=== PATIENT | male | born 2000 | race Hispanic/Latino ===

== ENCOUNTER 2023-12-02 14:37 | Inpatient (IN) | payer SELFPAY, OTHER ==
[~2023-12-02 14:37] MED LIST: Iopamidol-370 76% 500 ML MDV (1 ML CHARGE) ONE
[2023-12-02] MEDS ORDERED: CEFAZOLIN 2 GM VIAL ONE (14:41)
[2023-12-02] MEDS ORDERED: fentaNYL 50 mcg/mL 1 mL Vial ONE ×2 (14:41→14:52)
[2023-12-02] MEDS ORDERED: Sodium Chloride 0.9% 100 ML ONE (14:41)
[2023-12-02] MEDS ORDERED: Boostrix 0.5 ML (Tdap) VIAL (>/=7 yrs of age) ONE (14:41)
[2023-12-02 14:55] LABS: #Basophils 0.04 10x3/uL (0.0-0.2); %Basophils 0.4 % (0.0-1.0); %Eosinophils 0.7 % (0.0-10.0); %Lymphocytes 33.8 % (21.0-51.0); %Monocytes 6.8 % (0.0-10.0); %Neutrophils 57.2 % (42.0-75.0); Hematocrit 35.5 % (42.0-52.0); Hemoglobin 11.8 g/dL (14.0-18.0); Mean Corpuscular HGB CONC 33.2 g/dL (32.0-36.0); Mean Corpuscular Hemoglobin 31.1 pg (27.0-31.0); Mean Corpuscular Volume 93.4 fL (78.0-98.0); Mean Platelet Volume 9.4 fL (7.4-10.4); Platelet Count 255 10x3/uL (130-400); RBC Distribution Width 13.1 % (11.5-14.5)
[2023-12-02 15:11] LABS: ALT (SGPT) 64 U/L (8-55); AST (SGOT) 78 U/L (5-34); Albumin 3.8 g/dL (3.5-5.0); Alkaline Phosphatase 48 U/L (40-110); Anion Gap 15 mmol/L (10-20); BUN (Urea Nitrogen) 12 mg/dL (8.9-20.6); Bilirubin, Total 0.4 mg/dL (0.2-1.2); Calc. Creatinine Clearance 0 mL/min (70-130); Calcium 8.4 mg/dL (7.8-10.44); Carbon Dioxide 19 mmol/L (22-29); Chloride 111 mmol/L (98-107); Estimated GFR 125; Globulin 2.9 g/dL (2.4-3.5); Glucose 141 mg/dL (70-105); Potassium 3.2 mmol/L (3.5-5.1); Protein, Total 6.7 g/dL (6.0-8.3); Sodium 142 mmol/L (136-145)
[2023-12-02] MEDS ORDERED: Lidocaine 1% PF 5 ML VIAL ONE ×2 (15:19→17:15)
[2023-12-02] MEDS ORDERED: Morphine 4 MG/ML VIAL ONE (15:24)
[2023-12-02] MEDS ORDERED: HYDROmorphone 0.5 MG/0.5 ML SYRINGE ONE ×2 (15:50→20:31)
[2023-12-02] MEDS ORDERED: Promethazine HCl 25 MG/ML VIAL IM PRN (16:08)
[2023-12-02] MEDS ORDERED: Dextrose 5% in Water 1,000 ML IV PRN (16:08)
[2023-12-02] MEDS ORDERED: Acetaminophen 325 MG TAB PO PRN (16:08)
[2023-12-02] MEDS ORDERED: Dextrose 50% Abboject 50 ML SYRINGE SLOW IVP PRN (16:08)
[2023-12-02] MEDS ORDERED: traMADol HCl 50 MG TAB PO PRN (16:08)
[2023-12-02] MEDS ORDERED: Glucagon 1 MG/ML KIT IM PRN (16:08)
[2023-12-02] MEDS ORDERED: Ondansetron PF 4 MG/2 ML Vial IVP PRN (16:08)
[2023-12-02] MEDS ORDERED: Ketamine In 0.9 % NaCl 50 MG/5 ML SYRINGE ONE (16:14)
[2023-12-02] MEDS ORDERED: Sodium Chloride 0.9% 1,000 ML IV SCH (16:15)
[2023-12-02] MEDS ORDERED: fentaNYL PF 100 MCG/2 ML SYRINGE ONE (17:15)
[2023-12-02] MEDS ORDERED: SUCCINYLCHOLINE/SOD CL,ISO/PF 200 MG/10 ML SYRINGE FS ONE (17:15)
[2023-12-02] MEDS ORDERED: PROPOFOL 20 ML ONE (17:15)
[2023-12-02] MEDS ORDERED: Rocuronium Bromide 10 MG/ML (10ML VIAL) ONE (17:15)
[2023-12-02] MEDS ORDERED: Vancomycin 1 GM VIAL ONE (18:13)
[2023-12-02] MEDS ORDERED: Ondansetron PF 4 MG/2 ML Vial ONE (18:55)
[2023-12-02] MEDS ORDERED: Dexamethasone 20 MG/5 ML VIAL ONE (18:55)
[2023-12-02] MEDS ORDERED: Sterile Water 20 ML ONE (18:57)
[2023-12-02] MEDS ORDERED: CEFAZOLIN 1 GM VIAL ONE (18:57)
[2023-12-02] MEDS ORDERED: SUGAMMADEX SODIUM 200 MG/2 ML VIAL ONE (19:38)
[2023-12-02] MEDS ORDERED: Meperidine HCl/PF 25 MG (1 mL) VIAL ONE (20:16)
[2023-12-02 21:44] LABS: Lactic Acid 4.68 mmol/L (0.5-2.2)
[2023-12-02] MEDS: Morphine 4 MG/ML VIAL SLOW IVP PRN (21:49)
[2023-12-02] MEDS: Famotidine 20 MG TAB PO SCH (21:50)
[2023-12-02] MEDS: Gentamicin 340 MG, Admixture Fee 1 EACH in Sodium Chloride 0.9% 100 ML IVPB SCH (22:04)
[2023-12-02] MEDS: TETANUS, DIPHTHERIA TOX,ADULT (TDVAX) 0.5 ML VIAL IM ONE (22:04)
[2023-12-02 22:06] VITALS: BMI 24.7
[2023-12-02] MEDS: Lactated Ringer's 1,000 ML IV SCH (22:32)
[2023-12-02] MEDS ORDERED: CEFAZOLIN 2 GM in Sodium Chloride 0.9% 100 ML IVPB SCH (23:59)
[2023-12-03] MEDS: Acetaminophen 325 MG TAB PO SCH (00:28)
[2023-12-03] MEDS: CEFAZOLIN 2 GM in Sodium Chloride 0.9% 100 ML IVPB SCH ×2 (00:28→09:03)
[2023-12-03] MEDS: traMADol HCl 50 MG TAB PO PRN (00:30)
[2023-12-03] MEDS: traMADol HCl 50 MG TAB PO SCH (00:30)
[2023-12-03 04:56] LABS: #Basophils Less than 0.03 10x3/uL (0.0-0.2); #Eosinophils Less than 0.03 10x3/uL (0.0-0.7); %Basophils 0.1 % (0.0-1.0); %Lymphocytes 8.3 % (21.0-51.0); %Monocytes 11.2 % (0.0-10.0); %Neutrophils 80.2 % (42.0-75.0); Hematocrit 24.2 % (42.0-52.0); Hemoglobin 8.3 g/dL (14.0-18.0); Mean Corpuscular HGB CONC 34.3 g/dL (32.0-36.0); Mean Corpuscular Hemoglobin 31.7 pg (27.0-31.0); Mean Corpuscular Volume 92.4 fL (78.0-98.0); Mean Platelet Volume 9.6 fL (7.4-10.4); Platelet Count 158 10x3/uL (130-400); RBC Distribution Width 13.4 % (11.5-14.5); Red Blood Cell (RBC) Count 2.62 mill/uL (4.70-6.10)
[2023-12-03 05:12] LABS: Anion Gap 15 mmol/L (10-20); BUN (Urea Nitrogen) 12 mg/dL (8.9-20.6); Calc. Creatinine Clearance 129 mL/min (70-130); Calcium 7.4 mg/dL (7.8-10.44); Carbon Dioxide 17 mmol/L (22-29); Chloride 109 mmol/L (98-107); Estimated GFR 127; Glucose 165 mg/dL (70-105); Potassium 4.1 mmol/L (3.5-5.1); Sodium 137 mmol/L (136-145)
[2023-12-03 05:13] LABS: Lactic Acid 5.42 mmol/L (0.5-2.2)
[2023-12-03] MEDS: Cyclobenzaprine 10 MG TAB PO PRN (09:03)
[2023-12-03] MEDS: Sodium Bicarbonate 100 MEQ in Dextrose 5% in Water 1,000 ML IV SCH (09:03)
[2023-12-03 10:11] VITALS: BMI 24.7
[2023-12-03 12:41] LABS: Lactic Acid 3.81 mmol/L (0.5-2.2)
[2023-12-03 12:48] LABS: Anion Gap 12 mmol/L (10-20); BUN (Urea Nitrogen) 11 mg/dL (8.9-20.6); CK (CPK) 2378 U/L (30-200); Calc. Creatinine Clearance 140 mL/min (70-130); Calcium 7.5 mg/dL (7.8-10.44); Carbon Dioxide 24 mmol/L (22-29); Chloride 106 mmol/L (98-107); Estimated GFR 130; Glucose 168 mg/dL (70-105); Potassium 3.6 mmol/L (3.5-5.1); Sodium 138 mmol/L (136-145)
[2023-12-04 05:20] LABS: Anion Gap 9 mmol/L (10-20); BUN (Urea Nitrogen) 11 mg/dL (8.9-20.6); CK (CPK) 2297 U/L (30-200); Calc. Creatinine Clearance 138 mL/min (70-130); Calcium 7.8 mg/dL (7.8-10.44); Carbon Dioxide 29 mmol/L (22-29); Chloride 106 mmol/L (98-107); Estimated GFR 129; Glucose 121 mg/dL (70-105); Potassium 3.5 mmol/L (3.5-5.1); Sodium 140 mmol/L (136-145)
[2023-12-04] MEDS: Sodium Chloride 0.9% 1,000 ML IV SCH (08:33)
[2023-12-04] MEDS: Enoxaparin 40 MG (0.4 mL) SYRINGE SC SCH (08:34)
[2023-12-05 09:23] LABS: #Basophils Less than 0.03 10x3/uL (0.0-0.2); %Basophils 0.2 % (0.0-1.0); %Eosinophils 1.5 % (0.0-10.0); %Lymphocytes 31.7 % (21.0-51.0); %Monocytes 8.8 % (0.0-10.0); %Neutrophils 57.2 % (42.0-75.0); Hematocrit 18.2 % (42.0-52.0); Hemoglobin 5.9 g/dL (14.0-18.0); Mean Corpuscular HGB CONC 32.4 g/dL (32.0-36.0); Mean Corpuscular Hemoglobin 31.4 pg (27.0-31.0); Mean Corpuscular Volume 96.8 fL (78.0-98.0); Mean Platelet Volume 9.4 fL (7.4-10.4); Platelet Count 143 10x3/uL (130-400); RBC Distribution Width 13.8 % (11.5-14.5); Red Blood Cell (RBC) Count 1.88 mill/uL (4.70-6.10)
[2023-12-05] MEDS: Polyethylene Glycol 3350 17 GM Packet PO SCH (15:46)
[2023-12-05 16:54] LABS: Hematocrit 21.8 % (42.0-52.0); Hemoglobin 7.3 g/dL (14.0-18.0)
[2023-12-05 22:02] LABS: Hematocrit 24.8 % (42.0-52.0); Hemoglobin 8.8 g/dL (14.0-18.0)
[2023-12-05] MEDS: HYDROcodone/Acetaminophen 5/325 mg Tablet PO PRN (22:03)
[2023-12-05] MEDS: Senokot S 8.6-50 MG TAB PO SCH (22:03)
[2023-12-06 08:24] LABS: #Basophils 0.03 10x3/uL (0.0-0.2); %Basophils 0.5 % (0.0-1.0); %Eosinophils 2.8 % (0.0-10.0); %Lymphocytes 34.8 % (21.0-51.0); %Monocytes 10.7 % (0.0-10.0); %Neutrophils 50.3 % (42.0-75.0); Hematocrit 25.8 % (42.0-52.0); Hemoglobin 8.5 g/dL (14.0-18.0); Mean Corpuscular HGB CONC 32.9 g/dL (32.0-36.0); Mean Corpuscular Hemoglobin 30.1 pg (27.0-31.0); Mean Corpuscular Volume 91.5 fL (78.0-98.0); Mean Platelet Volume 8.9 fL (7.4-10.4); Platelet Count 179 10x3/uL (130-400); RBC Distribution Width 14.9 % (11.5-14.5); Red Blood Cell (RBC) Count 2.82 mill/uL (4.70-6.10)
[2023-12-06] MEDS: Polyethylene Glycol 3350 17 GM Packet PO SCH (09:12)
[2023-12-07 11:29] VITALS: BP 130/76; TEMP 98.4
== END 2023-12-07 16:32 | disposition home or self-care (01) | DRG 958 ==
LOC: EDBD 14:37 → ERS 14:37 → SDC 16:15 → SURG A 20:44
PROVIDERS: ADMIT Surgery; ATTEND Surgery
PROC: 0QSH06Z Reposition Left Tibia with Intramedullary Internal Fixation Device, Open Approach (ICD-10-PCS; principal; 2023-12-02)
PROC: 30233N1 Transfusion of Nonautologous Red Blood Cells into Peripheral Vein, Percutaneous Approach (ICD-10-PCS; 2023-12-05)
DX: S82.252B Displaced comminuted fracture of shaft of left tibia, initial encounter for open fracture type I or II (principal); E87.20 Acidosis, unspecified; S32.512A Fracture of superior rim of left pubis, initial encounter for closed fracture; M62.82 Rhabdomyolysis; S82.452B Displaced comminuted fracture of shaft of left fibula, initial encounter for open fracture type I or II; S32.591A Other specified fracture of right pubis, initial encounter for closed fracture; V49.9XXA Car occupant (driver) (passenger) injured in unspecified traffic accident, initial encounter; Y93.I9 Activity, other involving external motion; Y92.89 Other specified places as the place of occurrence of the external cause; S43.102A Unspecified dislocation of left acromioclavicular joint, initial encounter; D64.9 Anemia, unspecified
CPT/HCPCS: 12011; 36415; 36430; 70450; 70486; 70498; 71045; 71260; 72125; 74177; 80048; 80053; 82550; 83605; 85025; 86850; 86900; 86901; 90471; 90715; 93005; 96365; 96374; 96375; 97139; C1713; G0390; J0690; J1100; J1170; J1580; J1650; J2175; J2272; J2405; J2704; J3010; J3370; J3490; J7030; J7070; J7120; P9016; Q9967